=== PATIENT | male | born 1960 | race Caucasian/White ===

== ENCOUNTER → 2024-05-21 | Outpatient (CLI) | payer MEDICARE, OTHER | LOC: M WHC 08:38 → EDUNIT# 09:45 | PROVIDERS: ATTEND Student in an Organized Health Care Education/Training Program | DX: R55 Syncope and collapse (principal) ==

== ENCOUNTER → 2024-07-03 | Outpatient (CLI) | payer MEDICARE, OTHER | LOC: M RAD 08:15 | PROVIDERS: ATTEND Student in an Organized Health Care Education/Training Program | DX: I67.1 Cerebral aneurysm, nonruptured (principal); R55 Syncope and collapse ==